=== PATIENT | male | born 1945 | race Caucasian/White ===

== ENCOUNTER → 2018-01-03 | Outpatient (CLI) | payer MEDICARE, BC ==
[~2018-01-03] MED LIST: ASP325 PO; CEP500 PO; CLOB59LO3 TP; CLOB59LO4 TP; DAPS25TA8 PO; ENTLA PO; FLUO20DR5 OT; FLUT10SP; HYDR15CR4 TP; METO25TA91 PO; MOME30SO TP; NEOM10DR44 OT; NIAC100040 PO; PRE20 PO; SULF-198 PO; TAFL1DRO OU; TIM5OD OD
== END ==
LOC: RESP 04:04
PROVIDERS: ATTEND Internal Medicine
DX: J98.4 Other disorders of lung (principal)
CPT/HCPCS: 94060; 94726; 94729

== ENCOUNTER → 2019-01-27 | Outpatient (CLI) | payer MEDICARE, BC | LOC: RESP 10:00 | PROVIDERS: ATTEND Internal Medicine | DX: R93.89 Abnormal findings on diagnostic imaging of other specified body structures (principal) | CPT/HCPCS: 94060; 94726; 94729 ==